=== PATIENT | female | born 1980 | race African-American/Black ===

== ENCOUNTER 2018-03-25 14:27 | Inpatient (IN) ==
[2018-03-25] MEDS ORDERED: hydrALAZINE 20 MG/1 ML VIAL ONE (15:32)
[2018-03-25] MEDS ORDERED: hydrALAZINE 20 MG/1 ML VIAL IV STA (15:42)
[2018-03-25] MEDS ORDERED: ONDANSETRON 4 MG/2 ML VIAL IV STA (15:42)
[2018-03-25 15:52] LABS: Basophils % 0.5 % (0.0-0.8); Eosinophils # 0.1 10*3/uL (0.0-0.87); Eosinophils % 1.1 % (0.00-10.9); Hematocrit 31.8 VOL% (35.7-47.0); Hemoglobin 10.2 GM/DL (12.0-16.0); Immature Granulocytes % 0.3 %; Immature Granulocytes Absolute 0.02 #; Lymphocytes # 2.3 10*3/uL (1.4-4.0); Lymphocytes % 31.5 % (21.3-54.2); Mean Corpuscular HGB Conc 32.1 GM/DL (32-36); Mean Corpuscular Hemoglobin 27 PG (27-34); Mean Platelet Volume 11.1 FL (9.6-12.0); Monocytes # 0.3 10*3/uL (0.11-0.8); Monocytes % 4.6 % (1.7-12.7); Neutrophils # 4.6 10*3/uL (1.4-7.4); Platelet Count 270 T/CUMM (130-400); Red Blood Count 3.74 MC/CUMM (3.8-5.5); Red Cell Distribution Width 15.4 % (9.3-17.3); White Blood Count 7.4 T/CUMM (4-12)
[2018-03-25 16:00] LABS: PT Patient Result 10.3 SECS
[2018-03-25] MEDS ORDERED: niCARdipine 25 MG/10 ML VIAL IV ONE (16:05)
[2018-03-25 16:10] LABS: Alanine Aminotransferase 13 U/L (13-56); Albumin 3.6 G/DL (3.4-5.0); Alkaline Phosphatase 92 U/L (45-117); Aspartate Amino Transferase 18 U/L (0-37); Blood Urea Nitrogen 11 MG/DL (7-18); Calcium 8.6 MG/DL (8.5-10.1); Glucose 80 MG/DL (74-106); Osmolality,Calculated 280.1 MOS/KG (273-304); Potassium 3.4 MMOL/L (3.5-5.1); Sodium 142 MMOL/L (136-145); Total Protein 7.7 G/DL (6.4-8.3)
[2018-03-25 16:40] LABS: Apearance,Urine Slightly Hazy (Clear); Bilirubin,Urine Negative (Negative); Blood, Urine Large mg/dL (Negative); Glucose,Urine (UA) 50 mg/dL (Negative); Ketones,Urine Negative (Negative); Mucus,Urine Moderate /LPF (Occasional); Nitrite,Urine Negative (Negative); Protein,Urine Negative; RBC,Urine 5596 /HPF (0-4); Urine Color Yellow (Yellow); Urine Specific Gravity 1.004 (1.001-1.035); Urine Urobilinogen < 2.0 EU/DL (0.2-1.0); WBC,Urine 14 /HPF (0-6)
[2018-03-25 16:58] LABS: Barbiturates Screen,Urine Negative (Negative); Benzodiazepines Screen,Urine Negative (Negative); Cannabinoid Screen,Urine Negative (Negative); Opiate Screen,Urine Negative (Negative); Phencyclidine Screen,Urine Negative (Negative)
[2018-03-25] MEDS ORDERED: ONDANSETRON 4 MG/2 ML VIAL IV PRN (18:02)
[2018-03-25] MEDS ORDERED: LISINOPRIL/HCTZ 20-12.5 MG TABLET PO SCH (18:06)
[2018-03-25] MEDS ORDERED: hydrALAZINE 20 MG/1 ML VIAL IV PRN (18:08)
[2018-03-25] MEDS: niCARdipine INJ 25 MG in SODIUM CHLORIDE 0.9% 240 ML IV PRN ×2 (18:36→20:50)
[2018-03-25] MEDS ORDERED: POTASSIUM CHLORIDE 20 MEQ TABLET PO STA (18:36)
[2018-03-25 18:37] LABS: Thyroid Stimulating Hormone 1.63 uIU/ml (0.358-3.74)
[2018-03-25] MEDS: amLODIPine 5 MG TABLET PO SCH (19:19)
[2018-03-25] MEDS ORDERED: POTASSIUM CHLORIDE 20 MEQ TABLET PO ONE (19:53)
[2018-03-25] MEDS: ENOXAPARIN 40 MG/0.4 ML SYRINGE SUBCUT SCH (20:13)
[2018-03-25] MEDS: CYCLOBENZAPRINE 10 MG TABLET PO PRN (20:51)
[2018-03-26 05:54] LABS: Basophils % 0.3 % (0.0-0.8); Eosinophils % 0.1 % (0.00-10.9); Hematocrit 33.4 VOL% (35.7-47.0); Hemoglobin 10.5 GM/DL (12.0-16.0); Immature Granulocytes % 0.2 %; Immature Granulocytes Absolute 0.02 #; Lymphocytes # 1.6 10*3/uL (1.4-4.0); Lymphocytes % 17.2 % (21.3-54.2); Mean Corpuscular HGB Conc 31.4 GM/DL (32-36); Mean Corpuscular Hemoglobin 27 PG (27-34); Mean Corpuscular Volume 85.9 FL (87-102); Mean Platelet Volume 11.3 FL (9.6-12.0); Monocytes # 0.4 10*3/uL (0.11-0.8); Neutrophils # 7.5 10*3/uL (1.4-7.4); Neutrophils % 78.2 % (38.7-73.9); Platelet Count 276 T/CUMM (130-400); Red Blood Count 3.89 MC/CUMM (3.8-5.5); Red Cell Distribution Width 15.8 % (9.3-17.3); White Blood Count 9.6 T/CUMM (4-12)
[2018-03-26 06:13] LABS: Albumin 3.5 G/DL (3.4-5.0); Bilirubin,Total 0.9 MG/DL (0.2-1.0); Calcium 8.6 MG/DL (8.5-10.1); Osmolality,Calculated 275.5 MOS/KG (273-304); Potassium 3.5 MMOL/L (3.5-5.1); Risk Ratio 3.48; Total Protein 7.8 G/DL (6.4-8.3); VLDL CHOLESTEROL 14.6 MG/DL
[2018-03-26 06:14] LABS: % Iron Saturation 9.3 % (18-50)
[2018-03-26] MEDS: CYCLOBENZAPRINE 10 MG TABLET PO PRN ×2 (07:20→21:03)
[2018-03-26] MEDS: SPIRONOLACTONE 25 MG TABLET PO SCH (08:40)
[2018-03-26] MEDS: LISINOPRIL 20 MG TABLET PO SCH (08:40)
[2018-03-26] MEDS: PANTOPRAZOLE 40 MG TABLET PO SCH (08:40)
[2018-03-26] MEDS: amLODIPine 5 MG TABLET PO SCH (08:40)
[2018-03-26] MEDS ORDERED: PANTOPRAZOLE 40 MG TABLET PO SCH (09:00)
[2018-03-26] MEDS: ENOXAPARIN 40 MG/0.4 ML SYRINGE SUBCUT SCH (21:05)
[2018-03-27 06:31] LABS: Basophils % 0.3 % (0.0-0.8); Eosinophils # 0.1 10*3/uL (0.0-0.87); Eosinophils % 0.6 % (0.00-10.9); Hemoglobin 10.6 GM/DL (12.0-16.0); Immature Granulocytes % 0.2 %; Immature Granulocytes Absolute 0.02 #; Lymphocytes # 2.3 10*3/uL (1.4-4.0); Lymphocytes % 26.1 % (21.3-54.2); Mean Corpuscular HGB Conc 31.2 GM/DL (32-36); Mean Corpuscular Hemoglobin 27 PG (27-34); Mean Corpuscular Volume 86.3 FL (87-102); Mean Platelet Volume 10.8 FL (9.6-12.0); Monocytes # 0.5 10*3/uL (0.11-0.8); Monocytes % 5.6 % (1.7-12.7); Neutrophils # 5.8 10*3/uL (1.4-7.4); Neutrophils % 67.2 % (38.7-73.9); Platelet Count 285 T/CUMM (130-400); Red Blood Count 3.94 MC/CUMM (3.8-5.5); White Blood Count 8.6 T/CUMM (4-12)
[2018-03-27 06:58] LABS: Calcium 8.2 MG/DL (8.5-10.1); Osmolality,Calculated 279.5 MOS/KG (273-304); Potassium 3.6 MMOL/L (3.5-5.1)
[2018-03-27] MEDS ORDERED: amLODIPine 10 MG TABLET PO SCH (09:00)
[2018-03-27] MEDS: LISINOPRIL 20 MG TABLET PO SCH (09:07)
[2018-03-27] MEDS: PANTOPRAZOLE 40 MG TABLET PO SCH (09:07)
[2018-03-27] MEDS: SPIRONOLACTONE 25 MG TABLET PO SCH (09:07)
[2018-03-27 11:17] VITALS: BP 160/80
== END 2018-03-27 12:35 | disposition home or self-care (01) | DRG 305 ==
LOC: N.ED 14:27 → SUATTDRO 18:02 → N.EDINP 18:02 → N.ICU 18:45 → N.TELEN 03-26 15:00
PROVIDERS: ADMIT Family Medicine